=== PATIENT | female | born 1935 | race Caucasian/White ===

== ENCOUNTER 2020-05-14 07:30 | Day surgery (SDC) | payer MEDICARE, OTHER ==
[2020-05-12 10:53] LABS: BASOPHILS % (AUTO) 0.8 % (0.0-2.0); EOSINOPHILS % (AUTO) 5.7 % (1.0-6.0); HEMATOCRIT 39.8 % (36-46); HEMOGLOBIN 13.3 g/dL (12.0-16.0); LYMPHOCYTES # (AUTO) 2.1 K/uL (1.0-4.8); MEAN CORPUSCULAR HEMOGLOBIN 31.7 pg (26.0-34.0); MEAN CORPUSCULAR HGB CONC 33.4 G/dL (31.0-37.0); MEAN CORPUSCULAR VOLUME 95 fL (80-100); MONOCYTES # (AUTO) 0.6 K/uL (0.1-1.0); MONOCYTES % (AUTO) 8.4 % (2.0-9.0); NEUTROPHILS # (AUTO) 4.3 K/uL (1.8-7.7); NEUTROPHILS % (AUTO) 57.1 % (40.0-70.0); PLATELET COUNT (AUTO) 264 K/uL (150-450); RED BLOOD CELL COUNT(AUTO) 4.19 MIL/uL (4.00-5.20); RED CELL DISTRIBUTION WIDTH 14.6 % (11.5-14.5)
[2020-05-12 10:57] LABS: COVID AG,FIA SOURCE NASOPHARYNGEAL
[2020-05-12 11:03] LABS: CALCIUM, TOTAL 8.7 mg/dL (8.8-10.5); CREATININE 0.93 mg/dL (0.60-1.30); POTASSIUM 4.4 mmol/L (3.5-5.1)
[2020-05-12 11:09] LABS: PROTHROMBIN TIME 10.2 SEC (9.4-11.6)
[2020-05-12 11:15] LABS: ALBUMIN 3.6 g/dL (3.4-5.0); BILIRUBIN,TOTAL 0.4 mg/dL (0.1-1.0); TOTAL PROTEIN, SERUM 7.6 g/dL (6.4-8.2)
[~2020-05-14] VITALS: Ht 149.9 cm; Wt 68.2 kg
[~2020-05-14 07:30] MED LIST: ALLO100T PO; ASPI-1450 PO; ATOR40TA71 PO; CALC1CAP22 PO; FOLI-130 PO; LEVO75TA4 PO; LOSA1TAB37 PO; METO50 PO; MULT-1203 PO; OMEG1000 PO; OMEP40CA12 PO; RALO60TA13 PO
[2020-05-14] MEDS ORDERED: SODIUM CHLORIDE 0.9% 1,000 ML ONE (07:37)
[2020-05-14] MEDS ORDERED: SODIUM CHLORIDE 0.9% 1,000 ML IV ONE (08:00)
[2020-05-14] MEDS ORDERED: DIAZEPAM 5 MG TABLET PO STA (08:27)
[2020-05-14] MEDS ORDERED: DiphenhydrAMINE HCL 25 MG CAPSULE PO STA (08:27)
[2020-05-14] MEDS ORDERED: SODIUM CHLORIDE 0.9% 500 ML IV ONE ×2 (08:30→12:00)
[2020-05-14] MEDS ORDERED: HEPARIN SODIUM 1000 UNITS/NS 1,000 ML ONE (08:46)
[2020-05-14] MEDS ORDERED: SODIUM BICARBONATE 50 MEQ/50 ML VIAL ONE (08:46)
[2020-05-14] MEDS ORDERED: LIDOCAINE/PF 1% 30 ML VIAL ONE (08:46)
[2020-05-14] MEDS ORDERED: IOHEXOL 300 MG/ML 150 ML VIAL ONE (08:46)
[2020-05-14] MEDS ORDERED: NITROGLYCERIN 50 MG/D5% WATER 250 ML ONE (09:36)
[2020-05-14] MEDS ORDERED: VERAPAMIL HCL 2.5 MG/ML 2 ML VIAL ONE (09:36)
[2020-05-14 09:45] VITALS: BP 191/70
[2020-05-14] MEDS ORDERED: FentaNYL CITRATE PF 100 MCG/2 ML VIAL ONE (09:48)
[2020-05-14] MEDS ORDERED: MIDAZOLAM HCL 2 MG/2 ML VIAL ONE (09:48)
[2020-05-14] MEDS ORDERED: IOHEXOL 300 MG/ML 50 ML VIAL ONE (09:52)
[2020-05-14] MEDS ORDERED: HEPARIN SODIUM 1000 UNITS/NS 1,000 ML IARTER ONE (10:30)
[2020-05-14] MEDS ORDERED: FentaNYL CITRATE PF 100 MCG/2 ML VIAL IVP ONE (10:30)
[2020-05-14] MEDS ORDERED: IOHEXOL 300 MG/ML 150 ML VIAL IARTER ONE (10:30)
[2020-05-14] MEDS ORDERED: MIDAZOLAM HCL 2 MG/2 ML VIAL IVP ONE (10:30)
[2020-05-14] MEDS ORDERED: IOHEXOL 300 MG/ML 50 ML VIAL IARTER ONE (10:30)
[2020-05-14] MEDS ORDERED: LIDOCAINE 1% 30 ML/SOD BICARB 8.4% 4 ML SQ ONE (10:30)
[2020-05-14] MEDS ORDERED: NITROGLYCERIN/D5W 50 MG/250 ML IV BOTTLE IARTER ONE (10:45)
[2020-05-14] MEDS ORDERED: VERAPAMIL HCL 2.5 MG/ML 2 ML VIAL IARTER ONE (10:45)
[2020-05-14] MEDS ORDERED: HEPARIN SODIUM,PORCINE 5,000 UNITS/ML VIAL IVP ONE (10:45)
[2020-05-14] MEDS ORDERED: CONTAINER EMPTY IV ONE ×2 (11:15→11:30)
[2020-05-14] MEDS ORDERED: ADENOSINE IV ONE ×2 (11:15→11:30)
[2020-05-14 11:55] VITALS: BP 189/74
[2020-05-15 05:07] LABS: HIV 1-2 SCREEN 4TH GEN W/RFLX Non Reactive (Non Reactive)
== END 2020-05-14 14:30 | disposition home or self-care (01) ==
LOC: CATHLAB 07:30
PROVIDERS: ATTEND Internal Medicine Cardiovascular Disease
DX: R94.39 Abnormal result of other cardiovascular function study (principal); R06.09 Other forms of dyspnea; I25.119 Atherosclerotic heart disease of native coronary artery with unspecified angina pectoris; I10 Essential (primary) hypertension; I34.0 Nonrheumatic mitral (valve) insufficiency; E78.5 Hyperlipidemia, unspecified; E03.9 Hypothyroidism, unspecified; M10.9 Gout, unspecified; I35.0 Nonrheumatic aortic (valve) stenosis; K21.9 Gastro-esophageal reflux disease without esophagitis; Z20.822 Contact with and (suspected) exposure to COVID-19; Z98.41 Cataract extraction status, right eye; Z98.42 Cataract extraction status, left eye; Z98.890 Other specified postprocedural states; Z79.82 Long term (current) use of aspirin; Z79.899 Other long term (current) drug therapy; Z79.01 Long term (current) use of anticoagulants
CPT/HCPCS: 36415 ×2; 80053; 85025; 85610; 85651; 85730; 86038; 87389; 87426; 93005; 93460; 99152; 99153; C9803; J0153; J1644; J2250; J3010; J3490 ×4; J7030; Q9967 ×2

== ENCOUNTER → 2020-06-22 | Outpatient (CLI) | payer MEDICARE, OTHER ==
[~2020-06-22] MED LIST changes: +MAA ALBUMIN AGGREGATED TC99M/UD<10MCL ISOTOPE 1 EA INJ INJ ONE; +PENTETATE DTPA TC99M/MCL ISOTOPE 1 EA INJ INJ ONE
== END | disposition home or self-care (01) ==
LOC: RADMN 08:26
PROVIDERS: ATTEND Internal Medicine Cardiovascular Disease
DX: I27.0 Primary pulmonary hypertension (principal); I27.24 Chronic thromboembolic pulmonary hypertension; Z79.899 Other long term (current) drug therapy
CPT/HCPCS: 78582; A9539; A9540